=== PATIENT | female | born 2005 | race Hispanic/Latino ===

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

== ENCOUNTER 2024-12-05 21:03 | Emergency (ER) | payer BC, MEDICARE, OTHER | END 2024-12-06 00:59 | disposition home or self-care (01) | LOC: CSHERS 21:03 | DX: M25.532 Pain in left wrist (principal); W19.XXXA Unspecified fall, initial encounter | CPT/HCPCS: 99283 ==